=== PATIENT | female | born 1965 | race Caucasian/White ===

== ENCOUNTER 2017-03-28 20:21 | Emergency (ER) | payer BC ==
[~2017-03-28] VITALS: Ht 167.6 cm; Wt 77.4 kg
[~2017-03-28 20:21] MED LIST: HYDR-4246 PO; OXYM15MI2 NS
--- OUTSIDE RECORDS SUMMARY | 2017-03-28 20:26 | XMS REPORT | Continuity of Care Document ---
Author Author [facility] Organization [facility] Address Unknown Phone Unavailable Support Name Relationship Address Phone ONEL KIRKLAND MD Caregiver [address] [place] [address] Unavailable GEOFF MCALLISTER MD Caregiver [address] [place] [address] Unavailable ALEXIS MANRIQUEZ Next Of Kin [address] [place] [address] Insurance Providers Guarantor Brittney Manriquez Address [address] [place] [address] Email DENIED/NO TO PT PORTAL Payer [facility] Policy Number [id number] Subscriber's Name Alexis Manriquez Relationship 01 Spouse Group Number [id number] Advance Directives Directive Response Recorded Date/Time Ordered Resuscitation Status Full Code 10/31/16 5:41pm Resuscitation Documents on File No 11/01/16 6:17am DPOA for Healthcare Only No 11/01/16 6:17am Living Will Yes 11/01/16 6:17am Advanced Directive or Resuscitation Comments FULL CODE 11/01/16 6:17am Problems No problem information available. Medications Current Home Medications Medication Dose Units Route Directions Days Qty Instructions Start Date Hydrocodone/Acetaminophen ([place] 5-325 Tablet) 5-325 Tablet 1-2 Tab Oral Every 4 Hours as needed for Pain 20 Tablet 11/02/16 Oxymetazoline Hcl (Afrin) 15 Ml Mist 2 [place] Nasal as needed for Prn Orders 10/30/14 Past Home Medications Medication Directions Ordered Status Acetaminophen/Diphenhydramine (Tylenol Pm Ex-Strength Caplet) 1 Each Tablet, 1 Tab Oral Bedtime as needed for Prn Orders 10/31/16 Discontinued Acetaminophen/Dp-Hydram Hcl (Tylenol Pm Ex-Str Gelcap) 1 Tab Tablet, Discontinued Social History Social History Problem Response Recorded Date/Time Onset Date Status Reason for Hospitalization Hysterectomy 11/02/2016 9:11am Not Applicable Not Applicable Chewing Tobacco Status No 02/21/2013 10:44am Not Applicable Not Applicable 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 11/01/2016 6:12am Not Applicable Not Applicable Hx Alcohol Use Y WEEKENDS 11/01/2016 6:12am Not Applicable Not Applicable Has the pt used tobacco in the last 12 months No 11/01/2016 6:12am Not Applicable Not Applicable Query Response Start Date Stop Date Smoking Status Never smoker Hospital Discharge Instructions Instructions: Care Instructions: I was in the hospital because (patient own words): ROBOTIC HYSTERECTOMY Discharge Diet: regular Discharge Activity: as instructed Follow Up Appointments: November 09 @1130 Pending Lab / Results: No Pending Lab Patient Instructions: see discharge instructions Expected Signs/Symptoms: as reviewed Notify Physician If: any concerns call with temp > 100.5 During Business Hours:: Please call the physician's office at [phone] After Business Hours:: Please call [phone] and have the wet plant operator page the physician. Pain Management/Treatment: RXs provided Wound/Incision Care: as reviewed Condition at time of discharge: Good Plan of Care Discharge Date 11/02/16 10:10am Instructions/Education Provided NM Hysterectomy Dismissal Prescriptions See Medication Section Functional Status Query Response Date Recorded Mobility Status Ambulatory November 01, 2016 1:04pm Assistive Devices None November 01, 2016 1:04pm Activity Limitations None November 01, 2016 1:04pm Feeding Ability Independent November 01, 2016 1:04pm Toileting Ability Independent November 01, 2016 1:04pm Grooming Ability Independent November 01, 2016 1:04pm Dressing Ability Independent November 01, 2016 1:04pm Driving Ability Independent November 01, 2016 1:04pm Housework Ability Independent November 01, 2016 1:04pm Meal Preparation Ability Independent November 01, 2016 1:04pm Stair Climbing Ability Independent November 01, 2016 1:04pm Ability to complete ADL's impeded by No change November 01, 2016 1:04pm Cognitive/Perceptual Impairments Impaired vision November 01, 2016 1:04pm Visual Assistive Devices Glasses November 01, 2016 1:04pm Preferred Method of Learning Reading Hands on November 01, 2016 1:04pm Allergies, Adverse Reactions, Alerts Allergen Type Severity Reaction Status Last Updated Morphine Adverse Reaction Unknown Active 10/31/16 Immunizations Query Response on File Recorded Date/Time Hx Influenza Vaccination No 11/01/16 6:12am Hx Pneumococcal Vaccination No 11/01/16 6:12am Hx Influenza Vaccination No 11/01/16 6:12am Vital Signs Acute Vital Signs Vital Response Date/Time Temperature (Fahrenheit) 97.2 deg F (96.8 - 99.1) 11/02/2016 7:58am Temperature (Calculated Celsius) 36.23209 degrees C (36.0 - 37.3) 11/02/2016 7:58am Temperature Source Oral 11/02/2016 7:58am Pulse Rate (adult) 72 bpm (60 - 100) 11/02/2016 7:58am Respiratory Rate 16 breaths/min (10 - 20) 11/02/2016 7:59am O2 Sat by Pulse Oximetry 97 % (90 - 100) 11/02/2016 7:58am Oxygen Delivery Method Room Air 11/02/2016 7:58am Oxygen Delivery Method Room Air 11/01/2016 10:55am Oxygen Flow Rate 6.00 L/min 11/01/2016 10:05am Blood Pressure 125/69 mm Hg 11/02/2016 7:58am Blood Pressure Source Automatic Cuff 11/02/2016 7:58am Height (Feet) 5 feet 11/01/2016 5:53am Height (Inches) 6.00 inches 11/01/2016 5:53am Weight (Kilograms) 75.800 kg 11/01/2016 5:53am Body Mass Index (BMI) 27.0 11/01/2016 5:53am Results Laboratory Results Test Name Result Units Flags Reference Collection Date/Time Result Date/ Time Comments White Blood Count 4.6 T/MM3 4.5-11.0 11/01/2016 5:54am 11/01/2016 7: 12am Red Blood Count 4.13 M/MM3 4.00-5.20 11/01/2016 5:54am 11/01/2016 7: 12am Hemoglobin 12.1 GM/DL -16 11/01/2016 5:54am 11/01/2016 7:12am Hematocrit 37.3 % 36-46 11/01/2016 5:54am 11/01/2016 7:12am Mean Corpuscular Volume 90.3 UM3 80-100 11/01/2016 5:54am 11/01/2016 7: 12am Mean Corpuscular Hemoglobin 29.3 UUG 26-34 11/01/2016 5:54am 2015 7:12am Mean Corpuscular Hemoglobin Concent 32.4 GM/DL 31-37 11/01/2016 5:54am 11/01/2016 7:12am RDW Standard Deviation 40.6 FL 36.9-50.2 11/01/2016 5:54am 11/01/2016 7 :12am Platelet Count 316 T/MM3 130-400 11/01/2016 5:54am 11/01/2016 7:12am Mean Platelet Volume 9.3 UM3 L 9.4-12.4 11/01/2016 5:54am 11/01/2016 7: 12am Neutrophils (%) (Auto) 63.1 % 33-66 11/01/2016 5:54am 11/01/2016 7: 12am Lymphocytes (%) (Auto) 28.3 % 23-45 11/01/2016 5:54am 11/01/2016 7: 12am Monocytes (%) (Auto) 5.3 % 0-9.0 11/01/2016 5:54am 11/01/2016 7:12am Eosinophils (%) (Auto) 2.6 % 0-4 11/01/2016 5:54am 11/01/2016 7:12am Basophils (%) (Auto) 0.7 % 0-2 11/01/2016 5:54am 11/01/2016 7:12am Immature Granulocyte % (Auto) 0.0 % 0.0-0.5 11/01/2016 5:54am 2015 7:12am Absolute Neutrophils (auto) 2.9 T/MM3 1.8-7.7 11/01/2016 5:54am 2015 7:12am Absolute Lymphocytes (auto) 1.3 T/MM3 1-4.8 11/01/2016 5:54am 2015 7:12am Absolute Monocytes (auto) 0.2 T/MM3 0-0.8 11/01/2016 5:54am 11/01/2016 7:12am Absolute Eosinophils (auto) 0.1 T/MM3 0-0.5 11/01/2016 5:54am 2015 7:12am Absolute Basophils (auto) 0.0 T/MM3 0-0.2 11/01/2016 5:54am 11/01/2016 7:12am Absolute Immature Granulocyte (auto 0.00 T/MM3 0.00-0.03 11/01/2016 5: 54am 11/01/2016 7:12am Icterus Index < 2 0-7 11/01/2016 5:54am 11/01/2016 6:19am Chemistry Specimen Hemolysis < 15 0-25 11/01/2016 5:54am 11/01/2016 6 :19am 0-25: Specimen Exhibited No Hemolysis. Turbidity < 20 0-20 11/01/2016 5:54am 11/01/2016 6:19am Sodium Level 143 MEQ/L 134-144 11/01/2016 5:54am 11/01/2016 6:19am Potassium Level 3.8 MEQ/L 3.6-5 11/01/2016 5:54am 11/01/2016 6:19am Chloride Level 102 MEQ/L 98-107 11/01/2016 5:54am 11/01/2016 6:19am Carbon Dioxide Level 26 MEQ/L 22-30 11/01/2016 5:54am 11/01/2016 6: 19am Anion Gap 15 MEQ/L 5-15 11/01/2016 5:54am 11/01/2016 6:19am Blood Urea Nitrogen 6.0 MG/DL L 7-17 11/01/2016 5:54am 11/01/2016 6: 19am Creatinine 0.7 MG/DL 0.7-1.2 11/01/2016 5:54am 11/01/2016 6:19am BUN/Creatinine Ratio 9 RATIO 6-26 11/01/2016 5:54am 11/01/2016 6:19am Glomerular Filtration Rate Calc 89 11/01/2016 5:54am 11/01/2016 6: 19am Glucose Level 109 MG/DL 65-110 11/01/2016 5:54am 11/01/2016 6:19am Calculated Osmolality 274 MOSM/KG 261-280 11/01/2016 5:54am 11/01/2016 6:19am Calcium Level 9.1 MG/DL 8.4-10.2 11/01/2016 5:54am 11/01/2016 6:19am Urine Collection Type [place] 11/01/2016 5:54am 2015 6:18am Urine Color YELLOW YELLOW 11/01/2016 5:54am 11/01/2016 6:18am Urine Turbidity CLEAR CLEAR 11/01/2016 5:54am 11/01/2016 6:18am Urine Specific [place] 1.015 1.015-1.025 11/01/2016 5:54am 2015 6:18am Urine pH 7.0 5.0-8.0 11/01/2016 5:54am 11/01/2016 6:18am Urine Leukocyte Esterase NEGATIVE NEGATIVE 11/01/2016 5:54am 2015 6:18am Urine Nitrite NEGATIVE NEGATIVE 11/01/2016 5:54am 11/01/2016 6:18am Urine Protein NEGATIVE NEGATIVE 11/01/2016 5:54am 11/01/2016 6:18am Urine Glucose (UA) NEGATIVE NEGATIVE 11/01/2016 5:54am 11/01/2016 6: 18am Urine Ketones NEGATIVE NEGATIVE 11/01/2016 5:54am 11/01/2016 6:18am Urine Urobilinogen 0.2 EU/DL NORMAL 11/01/2016 5:54am 11/01/2016 6: 18am Urine Bilirubin NEGATIVE NEGATIVE 11/01/2016 5:54am 11/01/2016 6: 18am Urine Blood NEGATIVE NEGATIVE 11/01/2016 5:54am 11/01/2016 6:18am Urinalysis Comment MICROSCOPIC NOT IND. 11/01/2016 5:54am 2015 6:18am Procedures Procedure Status Date Provider(s) Robot-assisted hysterectomy Completed 11/01/16 GEOFF MCALLISTER MD Encounters Encounter Location Arrival/Admit Date Discharge/Depart Date Attending Provider Departed [facility] 11/01/16 5:39am 11/02/16 10 :10am GEOFF MCALLISTER MD
[2017-03-28 20:41] VITALS: Ht 167.6 cm; Wt 77.4 kg
[2017-03-28] MEDS ORDERED: ACET-2930 PO (21:10)
--- NOTE | 2017-03-28 21:22 | ERPDOC ---
Departure Disposition Decision Date: March 28, 2017 Disposition Decision Time: 21:47 Disposition: 01 DISCHARGED HOME, SELF-CARE Impression Impression Impression: Primary Impression: Finger laceration Encounter type: initial encounter Qualified Codes: S61.219A - Laceration without foreign body of unspecified finger without damage to nail, initial encounter Severity: Moderate Condition: Stable Seen By: Mid-level only Referrals: ONEL KIRKLAND MD (Family) Patient Instructions: Laceration (ED) Problems/Meds/Labs Reviewed?: Yes Medications reviewed and manag: Yes Additional Instructions: Have sutures taken out in 10-14 days with your primary care provider. May wash daily with soap and water. Cover with band aid and gauze if needed. Follow up care ordered?: Yes Mental Status: Alert, Oriented HPI - Skin General General Chief Complaint: Laceration Stated Complaint: LFT HAND LACERATION Time Seen by Provider: 20:59 Source: patient Exam Limitations: no limitations HPI - Skin General Initial Comments She was at home today and cut her left index finger with a knife. She has a laceration and presents to ER for evaluation of the laceration. She is not sure when her last TDAP was. Occurred At: home Onset: Rapid Duration: 1 hr Severity: moderate Location: extremities (left index finger) Possible Cause: other (with knife) Associated Symptoms: denies symptoms Hx of Similar Symptoms: No Allergies: Coded Allergies: NKDA (Verified Allergy, Unknown, 03/28/17) Past History Patient Surgical History Lumbar fusion hysterectomy tubal ligation cystoscopy Past Medical History Neurological: seizures Musculoskeletal: back pain Psychological: anxiety, bipolar Surgical History General: back (lumbar fusion) Reproductive/: hysterectomy, other (cystoscopy), tubal ligation Family History Family PMH: FOUND: [place] Vaccines Hx Influenza Vaccination: No Hx Pneumococcal Vaccination: No Social History Does patient use chewing tobac: No Second Hand Exposure: No Substance Use Type: does not use Review of Systems Musculoskeletal General: DENIES: joint pain, joint swelling, pain, tenderness Integumentary Skin: other (laceration on left index finger) Neurological General: DENIES: numbness, tingling, weakness Physical Exam General General Nourishment: well nourished, well developed, appears stated age, no acute distress, adult General Body Habitus: well groomed Vitals and Pain First Documented Vital Signs Date Time Temp Pulse Resp B/P Pulse Ox O2 Delivery O2 Flow Rate FiO2 5/9/17 20:41 97.8 70 12 159/90 99 Room Air Weight: Kilograms: Height (feet): 5 Height (inches): 6.00 Triage Pain Scale: RN VS reviewed by Provider: Yes Normal Exams: Neurologic: Patient is alert, and oriented Psychiatric: Patient exhibits, appropriate attention, emotion and affect Musculoskeletal (brief) Musculoskeletal Brief: NOT FOUND: deformity, loss of motion (able to fully flex and extend the left index finger), spasm, tenderness Integumentary (brief) Integumentary Brief: FOUND: other (Laceration on the left index finger) Differential Diagnoses Considering: Laceration, Other (tendon injury, open fracture) Procedures Laceration/Wound Repair Wound/Laceration Repair : Wound Location: upper extremity (left index finger) Wound Length (cm): 1 Depth, Shape: subcutaneous, linear Explored: clean Irrigated: saline Prep: chlorasept Anesthesia: 1% Lidocaine Volume Anesthetic (ccs): 1 Type of Block: local Repaired With: Sutures Suture Size: 4:0 Suture Type: prolene Number of Sutures: 4 Layer Closure?: No Progress Results/Orders Orders Procedure Category Date Status Time Lidocaine 1% PHA 03/28/17 Complete (Xylocaine 1%) 21:30 Medications Current ED Medications Lidocaine HCl (Xylocaine 1%) 100 mg O ONCE INFIL Last administered on t 21:38; Start 03/28/17 at 21:30; Stop 03/28/17 at 21:31; Status DC Progress Progress Wash daily with soap and water. Sutures out with PCP in 10-14 days. FARTUN LAINEZ APRN March 28, 2017 21:22
[2017-03-28] MEDS ORDERED: LIDOCAINE 1% (10mg/ml) 30ml SDV INFIL ONE (21:30)
--- NOTE | 2017-03-28 21:55 | NUR ---
DRSG FINGERS CLEANED AND BANDAIDE APPLIED TO WOUND PT THEODORE WELL
--- NOTE | 2017-03-28 21:58 | NUR ---
INSTRUCTIONS DISMISSAL INSTRUCTIONS GIVEN TO PT VERBALIZED UNDERSTANDING OF ALL
[2017-03-28 22:00] VITALS: BP 159/90; PULSE 70; RESP 12; TEMP 97.8; O2SAT 99
--- NOTE | 2017-03-28 22:00 | NUR ---
DISMISS PT DISMISSED AMBULATORY TO HOME
== END 2017-03-28 22:00 | disposition home or self-care (01) ==
LOC: ED 20:21
DX: S61.211A Laceration without foreign body of left index finger without damage to nail, initial encounter (principal); W26.0XXA Contact with knife, initial encounter; Y93.9 Activity, unspecified; Y92.009 Unspecified place in unspecified non-institutional (private) residence as the place of occurrence of the external cause; Y99.8 Other external cause status